=== PATIENT | female | born 1950 | race Caucasian/White ===

== ENCOUNTER → 2016-11-19 | Outpatient (CLI) | payer OTHER ==
--- NOTE | 2016-11-20 14:58 | MR ---
MRI of the Right Knee Clinical Indications: Knee pain, rule out medial meniscal tear. Technique: Fat-suppressed, fast T2-weighted images were acquired axially, sagittally, and coronally. T1-weighted sagittal images were obtained. Findings: Medial compartment: An obliquely oriented partial-thickness undersurface tear involves the body of th e medial meniscus. This tear is best visualized on coronal images 17, 18, 19 of series 3. The tear ex tends to toward the posterior medial corner. The anterior horn and posterior horn of the medial menis cus are intact. Medial compartment articular cartilage is intact. Lateral compartment: Minimal free edge fraying of the body lateral meniscus, without linear tear. The cartilage is intact. Patellofemoral compartment: Grade 2 chondral thinning throughout the medial patellar facet. Lateral p atellar facet and trochlear sulcus are intact. Anterior and posterior cruciate ligaments are intact. Medial and lateral collateral ligament are inta ct. Distal quadriceps and patellar tendons are intact. IMPRESSION: 1. Obliquely oriented undersurface partial-thickness tear mid body medial meniscus. 2. Chondromalacia patella. 3. Intact ligaments.
== END ==
LOC: FIMAGING 16:22
PROVIDERS: ATTEND Orthopaedic Surgery
DX: S83.241A Other tear of medial meniscus, current injury, right knee, initial encounter (principal); M22.41 Chondromalacia patellae, right knee

== ENCOUNTER → 2016-12-19 | Outpatient (CLI) | payer OTHER | LOC: BHFA 11:00 | PROVIDERS: ATTEND Internal Medicine | DX: I47.1 Supraventricular tachycardia (principal) ==

== ENCOUNTER → 2016-12-25 | Outpatient (CLI) | payer OTHER | LOC: BHFA 10:15 | PROVIDERS: ATTEND Internal Medicine Cardiovascular Disease | DX: R00.0 Tachycardia, unspecified (principal); R06.02 Shortness of breath ==

== ENCOUNTER → 2017-01-02 | Outpatient (CLI) | payer OTHER | LOC: BHFA 13:15 | PROVIDERS: ATTEND Internal Medicine Cardiovascular Disease | DX: R94.39 Abnormal result of other cardiovascular function study (principal) ==

== ENCOUNTER → 2017-01-28 | Outpatient (CLI) | payer OTHER | LOC: BHFA 14:30 | PROVIDERS: ATTEND Internal Medicine Cardiovascular Disease | DX: R00.2 Palpitations (principal); I34.0 Nonrheumatic mitral (valve) insufficiency ==

== ENCOUNTER → 2017-02-06 | Outpatient (CLI) | payer OTHER | LOC: FIMAGING 10:50 | PROVIDERS: ATTEND Internal Medicine Pulmonary Disease | DX: R06.00 Dyspnea, unspecified (principal) ==

== ENCOUNTER → 2017-07-02 | Outpatient (CLI) | payer OTHER | LOC: FIMAGING 09:04 | PROVIDERS: ATTEND Nurse Practitioner Adult Health | DX: Z12.31 Encounter for screening mammogram for malignant neoplasm of breast (principal); Z80.3 Family history of malignant neoplasm of breast | CPT/HCPCS: G0202 ==

== ENCOUNTER 2017-07-06 09:46 | Observation (INO) | payer OTHER ==
--- NOTE | 2017-07-06 09:58 | EDPHY ---
H & P Stated Complaint: AWOKE WITH MIDSTERNAL CHEST PAIN AT 3:30 AM Time Seen by Provider: 07/06/17 09:57 - Personal History Current Tetanus Diphtheria and Acellular Pertussis (TDAP): Yes Tetanus Vaccine Date: < 10 YEARS - Medical/Surgical History Hx Asthma: No Hx Chronic Respiratory Disease: No Hx Diabetes: No Hx Cardiac Disease: No Hx Renal Disease: No Hx Cirrhosis: No Hx Alcoholism: No Hx HIV/AIDS: No Hx Splenectomy or Spleen Trauma: No Other PMH: R KNEE SURGERY, HYPOTHYROID, CARDIAC DYSRYTHMIA - Social History Smoking Status: Never smoked Constitutional: Initial Vital Signs Temperature (C) 37 C 07/06/17 09:49 Heart Rate 65 07/06/17 09:49 Respiratory Rate 16 07/06/17 09:49 Blood Pressure 157/76 H 07/06/17 09:49 O2 Sat (%) 96 07/06/17 09:49 O2 Delivery Mode Room Air Allergies/Adverse Reactions: No Known Allergies Allergy (Unverified 07/06/17 09:53) Home Medications: Medication Instructions Recorded Bets Larissa 07/06/17 Levothyroxine 07/06/17 Medical Decision Making - Diagnostics Imaging Results: Imaging Impressions Chest X-Ray 07/06/17 10:09 Impression: No evidence for acute cardiopulmonary abnormality. Imaging: I viewed and interpreted images myself ED Course/Re-evaluation: CHIEF COMPLAINT: Chest pain HISTORY OF PRESENT ILLNESS: The patient is a 67 y/o female with a history of SVT complaining of constant substernal chest pain that woke her from sleep at 3: 30 this morning, about 6.5 hours ago. She took an 81mg aspirin and was able to go back to sleep for a short time, but her has pain persisted. She describes her pain as mild in severity. She has never had this pain previously and felt normal last night. She notes baseline shortness of breath that is unchanged today. She denies associated nausea, lightheadedness, near-syncope, or other symptoms. She notes she's had nighttime calf cramping for the last month. She denies history of cardiac disease, hyperlipidemia, hypertension, diabetes, significant family history of cardiac disease. She has not completed a full stress test, though one was attempted prior to surgery in January 2017; an echocardiogram that showed valve regurgitation. REVIEW OF SYSTEMS: A 10 point review of systems was performed and is negative with the exception of the elements mentioned in the history of present illness. PHYSICAL EXAM: HR, BP, O2 Sat, RR. Temp noted General Appearance: Alert, well hydrated, appropriate, and non-toxic appearing. Head: Atraumatic without scalp tenderness or obvious injury Eyes: Pupils equal, round, reactive to light and accommodation, EOMI, no trauma , no injection. Nose: Atraumatic, no rhinorrhea, clear. Throat: There is no erythema or exudates, no lesions, normal tonsils, mucus membranes moist. Neck: Supple, nontender, no lymphadenopathy. Respiratory: No retractions, no distress, no wheezes, and no accessory muscle use. Lungs are clear to auscultation bilaterally. Cardiovascular: Regular rate and rhythm, no murmurs, rubs, or gallops. Good capillary refill all extremities. Gastrointestinal: Abdomen is soft, nontender, non-distended, no masses, no rebound, no guarding, no peritoneal signs. Musculoskeletal: Normal active ROM of all extremities, atraumatic. Neurological: Alert, appropriate, and interactive. Nonfocal neuro exam. Skin: No rashes, good turgor, no nodules on palpation. Past medical history: SVT, mild valve regurgitation, stress test January 2017 was interrupted and not completed Past surgical history: Knee surgery Family history: Father possibly had an NV at an unknown age seen on later EKG Social history: Lives in [place]. . 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 PCP: Dannielle Louie DIAGNOSTICS/PROCEDURES/CRITICAL CARE TIME: The 12 lead EKG was interpreted by myself. Sinus mechanism rate 62. See hard copy and/or "tracemaster" electronic copy for interpretation. Chest x-ray: negative DIFFERENTIAL DIAGNOSIS: The differential diagnosis for the patient's chest pain included but was not limited to myocardial ischemia, pulmonary embolus, chest wall pain, pleural inflammation, and pulmonary infectious causes. MEDICAL DECISION MAKING: This is a 67 y/o female with a history of SVT complaining of a few-hour history of constant, but mild chest pain. She denies any other symptoms. Plan for cardiac work up including IV, labs, EKG, chest x-ray. Reassessed patient. She has remained stable while here. Her troponin at 10:15 was negative. Plan for second troponin and discharge home if normal. We would expect her troponin to be elevated 10 hours out from initial symptoms if her pain was cardiac in nature; however, due to her lack of complete provocative cardiac testing. Will consult cardiology. 1240: Consulted Dr. Farris, cardiology. He will assess patient in the ED. He recommends admission for Lexiscan tomorrow. 1252: Discussed operator cavity pump's recommendation for admission with the patient. She agrees to admission. 1255: Spoke with hospitalist service. Dr. Mcneal accepts admission. - Data Points Laboratory Results: Laboratory Results 07/06/17 10:15 07/06/17 10:15 07/06/17 07/06/17 07/06/17 10:15 10:15 10:15 WBC 5.17 10^3/uL 10^3/uL (3.80-9.50) RBC 4.09 10^6/uL L 10^6/uL (4.18-5.33) Hgb 13.8 g/dL g/dL (12.6-16.3) Hct 40.4 % % (38.0-47.0) MCV 98.8 fL fL (81.5-99.8) MCH 33.7 pg pg (27.9-34.1) MCHC 34.2 g/dL g/dL (32.4-36.7) RDW 12.6 % % (11.5-15.2) Plt Count 207 10^3/uL 10^3/uL (150-400) MPV 11.2 fL fL (8.7-11.7) Neut % (Auto) 64.5 % % (39.3-74.2) Lymph % (Auto) 27.1 % % (15.0-45.0) [place] % (Auto) 6.8 % % (4.5-13.0) Eos % (Auto) 1.0 % % (0.6-7.6) Baso % (Auto) 0.4 % % (0.3-1.7) Nucleat RBC Rel Count 0.0 % % (0.0-0.2) Absolute Neuts (auto) 3.34 10^3/uL 10^3/uL (1.70-6.50) Absolute Lymphs (auto) 1.40 10^3/uL 10^3/uL (1.00-3.00) Absolute Monos (auto) 0.35 10^3/uL 10^3/uL (0.30-0.80) Absolute Eos (auto) 0.05 10^3/uL 10^3/uL (0.03-0.40) Absolute Basos (auto) 0.02 10^3/uL 10^3/uL (0.02-0.10) Absolute Nucleated RBC 0.00 10^3/uL 10^3/uL (0-0.01) Immature Gran % 0.2 % % (0.0-1.1) Immature Gran # 0.01 10^3/uL 10^3/uL (0.00-0.10) D-Dimer < 0.27 ug/mLFEU ug/mLFEU (0.00-0.50) Sodium 139 mEq/L mEq/L (134-144) Potassium 3.7 mEq/L mEq/L (3.5-5.2) Chloride 103 mEq/L mEq/L (97-110) Carbon Dioxide 22 mEq/l mEq/l (22-31) Anion Gap 14 mEq/L mEq/L (8-16) BUN 14 mg/dL mg/dL (7-23) Creatinine 0.9 mg/dL mg/dL (0.6-1.0) Estimated GFR > 60 Glucose 109 mg/dL H mg/dL (70-100) Calcium 9.9 mg/dL mg/dL (8.5-10.4) Troponin I < 0.012 ng/mL ng/mL (0.000-0.034) NT-Pro-B Natriuret Pep 403 pg/mL H pg/mL (0-125) Departure - Departure Disposition: [facility] Inpatient Acute Clinical Impression: Chest pain Qualifiers: Chest pain type: other chest pain Qualified Code(s): R07.89 - Other chest pain Condition: Fair Referrals: Arin Garcia NP [Primary Care Provider] - As per Instructions Report Scribed for: Kvng Garnica Report Scribed by: Margot Honeycutt Date of Report: 07/06/17 Time of Report: 10:10
--- NOTE | 2017-07-06 10:08 | CPEKG ---
Heart Rate: 62 RR Interval: 968 P-R Interval: 152 QRSD Interval: 86 QT Interval: 424 QTC Interval: 431 P Severy: 64 QRS Severy: 66 T Wave Severy: 42 EKG Severity - NORMAL ECG - EKG Impression: SINUS RHYTHM Electronically Signed By: Kvng Garnica 06-Jul-2017 14:47:15
[2017-07-06 10:29] LABS: % IMMATURE GRANULYOCYTES 0.2 % (0.0-1.1); ABSOLUTE IMMATURE GRANULOCYTES 0.01 10^3/uL (0.00-0.10); ADD DIFF? NO; ADD MORPH? NO; ADD SCAN? NO; ATYPICAL LYMPHOCYTE FLAG 10 (0-99); FRAGMENT RBC FLAG 0 (0-99); HEMATOCRIT 40.4 % (38.0-47.0); HEMOGLOBIN 13.8 g/dL (12.6-16.3); LEFT SHIFT FLG 0 (0-99); LIPEMIA HEMOLYSIS FLAG 90 (0-99); MEAN CELL HEMOGLOBIN 33.7 pg (27.9-34.1); MEAN CELL HEMOGLOBIN CONCENTR. 34.2 g/dL (32.4-36.7); MEAN CELL VOLUME 98.8 fL (81.5-99.8); MEAN PLATELET VOLUME 11.2 fL (8.7-11.7); PLATELET CLUMPS FLAG 0 (0-99); PLATELET COUNT 207 10^3/uL (150-400); RED BLOOD CELL COUNT 4.09 10^6/uL (4.18-5.33); RED CELL DISTRIBUTION WIDTH 12.6 % (11.5-15.2)
[2017-07-06 10:40] LABS: ANION GAP 14 mEq/L (8-16); CALCIUM 9.9 mg/dL (8.5-10.4); CARBON DIOXIDE 22 mEq/l (22-31); CHLORIDE 103 mEq/L (97-110); CREATININE 0.9 mg/dL (0.6-1.0); GLOMERULAR FILTRATION RATE > 60; GLUCOSE 109 mg/dL (70-100); POTASSIUM 3.7 mEq/L (3.5-5.2); SODIUM 139 mEq/L (134-144)
[2017-07-06 10:52] LABS: TROPONIN I < 0.012 ng/mL (0.000-0.034)
--- NOTE | 2017-07-06 14:09 | CPIP ---
[f rep st] CARDIOLOGY CONSULTATION. DATE OF PROCEDURE: 07/06/2017 REASON FOR CONSULTATION: Evaluate woman with constant chest pain x11 hours. HISTORY OF PRESENT ILLNESS: I was asked by Dr. Asmita Mcneal to consult for the above reason. The patient is a 67-year-old woman with a history of chronic palpitations, chronic back pain and hypothyroidism. She had an echocardiogram in December of 2016 which demonstrated an LVEF of 63% with moderate mitral regurgitation and trivial tricuspid insufficiency with normal PA pressures. She attempted a treadmill Cardiolite stress test in December of 2016, able to exercise for 3 minutes and 59 seconds only. Accompanying echo images demonstrated a normal LV function with no ischemia. Overall it was felt she had markedly limited exercise tolerance, however. She was in her normal state of health until this morning. She awoke at 3:30 am in the morning with a pressure in the middle of her chest. She took an aspirin and went back to bed, but woke up the next hour and has had a constant chest pressure since then. She reports no nausea, vomiting, diaphoresis, or sense of shortness of breath. She has no fevers or cough. Of note, her did have an upper respiratory infection a week ago. She is still having 3/10 chest pain currently. Her initial EKG and troponin were unremarkable. A D-dimer is negative for pulmonary embolus. She reports no recent trauma to her chest or long travels. PAST MEDICAL HISTORY: Chronic palpitations back pain hypothyroidism. PAST SURGICAL HISTORY: Previous right knee surgery. HOME MEDICATIONS: Bisoprolol 5 mg per day, Xopenex, and Synthroid. ALLERGIES: No known drug allergies. SOCIAL HISTORY: The patient is . She smoked for 1 year many years ago but does not currently smoke. She has minimal alcohol intake. FAMILY HISTORY: Unremarkable for premature coronary artery disease. REVIEW OF SYSTEMS: The patient reports no recent fevers, chills, hemoptysis or purulent sputum production. She has no GI bleed symptoms such as hematemesis, melena, or bright red blood per rectum. Rest of 10-point review of systems is negative. PHYSICAL EXAMINATION: VITAL SIGNS: Temperature 37 Celsius, pulse 58 and regular, blood pressure 144/72, respirations 20, 98% on room air. Weight 72.6 kg. GENERAL: Normal-appearing woman in no acute distress without chest pain or using excess respiratory muscles. EYES: Pupils equal and reactive to light. ENT: Oral mucosa with no cyanosis. NECK: Jugular venous pressure to 7 cm. Carotid pulses 2+ bilaterally with no obvious bruits. No thyromegaly noted. LUNGS: Clear to auscultation bilaterally without rales, rhonchi, or wheezing. HEART: Normal PMI. Regular rate and rhythm with 1/6 nonradiating systolic murmur and no S3. ABDOMEN: Soft and nontender. No guarding or rebound. No hepatosplenomegaly. No bruit over her abdominal aorta. EXTREMITIES: 2+ peripheral pulses including femoral and pedal pulses. No edema noted. MUSCULOSKELETAL: No scoliosis and no nuchal rigidity. SKIN: No bleeding or cyanosis. NEURO: Normal affect and mood. DIAGNOSTIC STUDIES: EKG normal sinus rhythm, with no ST-T wave abnormalities. Chest x-ray, no cardiomegaly, or pulmonary infiltrates or effusions. LABORATORIES: White count 5.2, hematocrit 40, platelets 207,000, MCV 99, D- dimer negative. Sodium 139, potassium 3.7, chloride 103, bicarb 22, BUN 14, creatinine 0.9. Glucose 109. NT proBNP level 403. Troponin negative. IMPRESSION: A 67-year-old woman with ongoing 3/10 chest pain x11 hours. Clinically, I am suspicious of possible pleurisy or anxiety; however, cannot exclude coronary artery disease. Her stress test from 6 months ago demonstrated rather poor exercise tolerance. RECOMMENDATIONS: 1. Would admit to 23 hour observation. 2. Would get cardiac enzymes q.6 hours x3 sets. 3. Would do a Lexiscan Cardiolite stress test in the morning, as she does have chronic knee pain that prohibits full exercise on a treadmill. 4. Would continue on her bisoprolol and a baby aspirin. 5. As long as her Lexiscan Cardiolite stress test shows no ischemia I feel she could be discharged home tomorrow afternoon. /[id number]/MODL MTDD
[2017-07-06] MEDS ORDERED: ONDANSETRON 4 MG/2 ML VIAL IVP PRN (14:51)
[2017-07-06] MEDS ORDERED: PROMETHAZINE HCL 25 MG/ML INJ IVP PRN (14:51)
[2017-07-06] MEDS ORDERED: KETOROLAC 30 MG/1 ML SDV IVP PRN (14:51)
[2017-07-06] MEDS ORDERED: ACETAMINOPHEN 325 MG TAB PO PRN (14:51)
--- NOTE | 2017-07-06 15:25 | GHP ---
[f rep st] HISTORY AND PHYSICAL DATE OF ADMISSION: 07/06/2017 CHIEF COMPLAINT: Chest pain. HISTORY: The patient is a 67-year-old female, who was awoken at 3:30 in the morning with chest pain . She describes as a central substernal sharp aching pain. There is a mild pleuritic component. S he has chronic shortness of breath which has been unchanged. There is no radiation of the pain. Amarjit rodriguez has had increasing cramping of her calves for the last 1 month. She also has some known herniated discs in her thoracic region which are causing some radiating neuropathic type pains. PAST MEDICAL HISTORY: 1. Palpitations suspected to be SVT although she has not yet arranged outpatient cardiac testing. 2. Back pain. 3. Hypothyroidism. 4. Herniated discs. PAST SURGICAL HISTORY: Knee surgery. MEDICATIONS: Please see computer record for full details. ALLERGIES: No known drug allergies. SOCIAL HISTORY: She smoked for 1 year in the very distant past. No alcohol. She lives with her [facility]. REVIEW OF SYSTEMS: Complete review of systems obtained. Review of systems negative on constitution al, HEENT, GI, pulmonary, cardiovascular, , hematology, skin, muscular, endocrine, psych. Except for positives and negatives, as noted in HPI. FAMILY HISTORY: Negative for early coronary artery disease. PHYSICAL EXAMINATION: GENERAL: Well-developed, well-nourished female, in no acute distress. VITAL SIGNS: Temperature 37.0, pulse 58, blood pressure 144/72, satting 98% on room air. HEENT: Normal conjunctivae. Pupils reactive to light. ENT normal ears and nose. Hearing intact. Normal teeth. Oropharynx moist. NECK: Trachea midline. No thyromegaly. CHEST: Normal effort. LUNGS: Clear to auscultation bilaterally. CARDIOVASCULAR: Regular rhythm. No murmur. No lower extremity edema. ABDOMEN: Soft, nontender. No hepatosplenomegaly. SKIN: Warm, dry, intact. No rash. MUSCULOSKE LETAL: No cyanosis or clubbing. Strength 5/5 upper and lower extremities. NEUROLOGIC: Cranial ne rves intact. Normal sensation to light touch. PSYCHIATRIC: Alert and oriented x3. Normal affect. Normal judgment. Normal memory. LABORATORY DATA: White count 5.17, hematocrit 40.4, platelets 207, sodium 139, potassium 3.7, chlor edmundo 103, bicarb 22, BUN 14, creatinine 0.9. Glucose 109. D-dimer is negative. Troponins negative x2. BNP is 403. IMAGING: EKG viewed by me. My personal interpretation, normal sinus rhythm, no ST-T wave changes. Chest x-ray is negative. This case was discussed with Dr. Jason Farris of Cardiology. He has seen her in consultation. He recommends serial troponins and a Lexiscan stress test. ASSESSMENT/PLAN: 1. Chest pain. We will follow serial Troponins and EKGs. Will start on daily aspirin and check a lipid panel in the morning. She has failed an attempt at an exercise treadmill test in the past, so will instead perform a Lexiscan stress test tomorrow. 2. Palpitations. This has been suspected to be supraventricular tachycardia, but it has never been caught on monitor. She is following with Dr. Chicas. We will continue her bisoprolol, monitor on tel emetry. 3. Hypothyroidism. She states she recently had a full physical as an outpatient including a TSH ch ecked, so I do not think there is any need to recheck it now. COR STATUS: Full. ADMISSION STATUS: Will admit to observation. Anticipate discharge home tomorrow if stress testing is negative. DVT PROPHYLAXIS: She is low risk. We will hold off on pharmacologic prophylaxis at this time. /[id number]/MODL
[2017-07-07 04:50] LABS: CHOLESTEROL 193 mg/dL (140-220); CHOLESTEROL/HDL RATIO 3.51 RATIO (1.00-4.44); HIGH DENSITY LIPOPROTEIN 55 mg/dL (40-85); LDL/HDL RATIO 2.29 RATIO (1.00-3.22); LOW DENSITY LIPOPROTEIN 126 mg/dL (80-100); NON-HIGH DENSITY LIPOPROTEIN 138 mg/dL (90-129); TRIGLYCERIDE 64 mg/dL (35-135); VERY LOW DENSITY LIPOPROTEINS 12 mg/dL (8-25)
[2017-07-07 05:02] LABS: TROPONIN I < 0.012 ng/mL (0.000-0.034)
[2017-07-07] MEDS ORDERED: LEVOTHYROXINE 75 MCG TAB PO SCH (06:00)
[2017-07-07 07:25] VITALS: TEMP 98; O2SAT 97
--- NOTE | 2017-07-07 08:38 | CPEKG ---
Heart Rate: 53 RR Interval: 1132 P-R Interval: 160 QRSD Interval: 78 QT Interval: 464 QTC Interval: 436 P Dillon: 71 QRS Dillon: 68 T Wave Dillon: 67 EKG Severity - BORDERLINE ECG - EKG Impression: SINUS RHYTHM EKG Impression: BORDERLINE T ABNORMALITIES, ANT-LAT LEADS EKG Impression: COMPARED WITH PREVIOUS TRACING DATED 07/06/2017, NO SIGNIFICANT CHANGE Electronically Signed By: Carla Jose 07-Jul-2017 10:25:10
[2017-07-07] MEDS ORDERED: ASPIRIN EC 81 MG TAB PO SCH (09:00)
[2017-07-07] MEDS ORDERED: BISOPROLOL FUMARATE 5 MG TAB PO SCH (09:00)
[2017-07-07] MEDS ORDERED: REGADENOSON 0.4 MG/5 ML SYR IVP ONE (10:40)
--- NOTE | 2017-07-07 11:01 | ASMTCMCOM ---
CM Note CM Note Notes: Case Management Initial Assessment: Reviewed chart, spoke w/RN. No case management needs identfied d/t age and activity level prior to hospitalization. No therapy evals ordered. Case Management d/c poc: Home independent w/follow up as directed by . Date Signed: 07/07/2017 11:00 AM Electronically Signed By:Preethi Olson
--- NOTE | 2017-07-07 11:06 | ASMTCMCOM ---
CM Note CM Note Notes: Case Management d/c poc: to be determined. No therapy evals ordered yet, procedures scheduled for today and tomorrow. Case Management to continue to follow. Date Signed: 07/07/2017 11:05 AM Electronically Signed By:Preethi Olson
[2017-07-07 11:23] VITALS: BP 116/73; PULSE 57; RESP 12
--- NOTE | 2017-07-07 11:51 | CPR ---
[f rep st] NONINVASIVE CARDIAC PROCEDURE REPORT DATE OF PROCEDURE: 07/07/2017 PROCEDURE: Lexiscan nuclear stress test. INDICATION: The patient is a 67-year-old female, who developed chest pain at 3:30 a.m., which woke her from her sleep. It has persisted for the past 24 hours but might get slightly worse with deep b reaths. She is very active, exercising on a regular basis, and denies any exertional chest discomfo rt, dyspnea on exertion, or exercise intolerance. She denies any history of hypertension, diabetes, family history of coronary artery disease, or significant tobacco use. She has possible hyperlipid emia. DESCRIPTION OF PROCEDURE: Consent was obtained, and the patient was placed on continuous telemetry. Her resting EKG revealed normal sinus rhythm with heart rate of 58, FL interval of 148, QRS durati on 86, and a QTc of 441. She had a nonischemic EKG. The patient was unable to exercise secondary t o knee pain and therefore had a Lexiscan nuclear stress test. She complained of abdominal discomfor t, chest tightness, as well as arm and leg tingling with the Lexiscan infusion. Her symptoms improv ed with caffeine. Four minutes into recovery, she continued to have some mild symptoms, but they we re improving. She remained in normal sinus rhythm, without any significant ST-T wave changes throug hout the study. Her blood pressure at rest was 130/64 and dropped to 118/60 with the infusion. Thr ee minutes into recovery, her blood pressure had recovered and was back at baseline. PLAN: Await nuclear images. /[id number]/MODL
--- NOTE | 2017-07-07 11:57 | SOAPPROG ---
[facility] Progress Note Assessment/Plan: Assessment/Plan: Addis is a 67 y/o F who presented to the hospital with atypical chest pain and mildly abnormal EKG. She woke at 3:30 am with chest pain which is still present. She denies any radiation of pain. She denies any associated symptoms such as SOB, nausea, or diaphoresis. She exercises regularly and denies any exertional chest pain, AYALA, or exercise intolerance. She was ruled out for a SC with negative troponins. A nuclear stress results are pending. If her stress test is normal she can be d/c home and follow up with her PCP. A echo showed normal LV function with moderate MR. She will need a echo in one year to track MR. 07/07/17 12:55 Subjective: Complaining of constant low level chest discomfort that is slightly worse with inspiration. She denies any SOB, nausea, or diaphoresis. Objective: Vital Signs Temp Pulse Resp BP Pulse Ox 36.7 C 57 L 12 116/73 97 07/07/17 11:21 07/07/17 11:21 07/07/17 11:21 07/07/17 11:21 07/07/17 11:21 07/06/17 07/07/17 07/08/17 05:59 05:59 05:59 Intake Total 100 Balance 100 tele- NSR Physical Exam - Physical Exam General Appearance: WD/WN Respiratory: normal breath sounds, No crackles, No stridor Cardiac/Chest: regular rate, rhythm Peripheral Pulses: 2+: dorsalis-pedis (R), dorsalis-pedis (L) Extremities: No pedal edema ICD10 Worksheet Patient Problems: Problems Problem Status Onset Chest pain Acute
--- NOTE | 2017-07-07 18:33 | GDS ---
[f rep st] DISCHARGE SUMMARY DISCHARGE DIAGNOSES: 1. Chest pain, suspect musculoskeletal. 2. Palpitations with possible supraventricular tachycardia. 3. Hypothyroidism. HISTORY: The patient is a 67-year-old female, who was awoken from sleep at 3:30 in the morning with chest pain. It was mildly pleuritic, but her D-dimer was negative. She had serial troponins and E KGs that were unremarkable. This was followed up with a nuclear medicine stress test which was nega tive for reversible ischemia. She is okay to discharge home. She is chronically on bisoprolol for palpitations, which are felt to be probable SVT although has yet to be caught on a monitor, and outp atient event monitoring with Dr. Chicas is pending. She also has known moderate mitral regurgitation, needs a followup echo in 1 year. DISCHARGE MEDICATIONS: Please see computer record for full detailed list. New medications: None. ADDITIONAL DISCHARGE INSTRUCTIONS: 1. Repeat echocardiogram 1 year to follow mitral regurgitation. 2. Follow up with Dr. Chicas for outpatient monitoring for possible SVT. The patient was seen and examined by me on the day of discharge. /[id number]/MODL
== END 2017-07-07 14:31 | disposition home or self-care (01) ==
LOC: F2W 15:00
PROVIDERS: ADMIT Internal Medicine; ATTEND Internal Medicine
DX: R07.89 Other chest pain (principal); R00.2 Palpitations; E03.9 Hypothyroidism, unspecified; Z87.891 Personal history of nicotine dependence
CPT/HCPCS: 71020; 78452; 93005; 93017; A9500; G0378; J2785

== ENCOUNTER → 2018-10-27 | Outpatient (CLI) | payer OTHER | LOC: FIMAGING 12:49 | PROVIDERS: ATTEND Nurse Practitioner Adult Health | DX: Z12.31 Encounter for screening mammogram for malignant neoplasm of breast (principal); Z80.3 Family history of malignant neoplasm of breast ==

== ENCOUNTER → 2018-10-28 | Outpatient (CLI) | payer OTHER | LOC: FIMAGING 09:29 | PROVIDERS: ATTEND Nurse Practitioner Adult Health | DX: Z13.820 Encounter for screening for osteoporosis (principal); M85.89 Other specified disorders of bone density and structure, multiple sites; E07.9 Disorder of thyroid, unspecified; Z78.0 Asymptomatic menopausal state ==

== ENCOUNTER → 2019-01-18 | Outpatient (CLI) | payer OTHER | LOC: BMCIMAGING 11:26 | PROVIDERS: ATTEND Nurse Practitioner Adult Health | DX: M25.511 Pain in right shoulder (principal) ==

== ENCOUNTER → 2019-04-21 | Outpatient (CLI) | payer OTHER | LOC: EMCIMAGING 11:05 ==